=== PATIENT | male | born 1995 | race Caucasian/White ===

== ENCOUNTER 2020-12-03 17:56 | Emergency (ER) | payer OTHER ==
[~2020-12-03] VITALS: Ht 177.8 cm; Wt 63.5 kg
[2020-12-03] MEDS ORDERED: PREDNISONE 20 M20 MG PO ×3 (18:59→19:22)
[2020-12-03 19:25] VITALS: BP 130/74
== END 2020-12-03 19:25 | disposition home or self-care (01) ==
LOC: ER 17:56
DX: J02.0 Streptococcal pharyngitis (principal); Z20.822 Contact with and (suspected) exposure to COVID-19

== ENCOUNTER 2021-01-31 10:59 | Emergency (ER) | payer OTHER ==
[~2021-01-31] VITALS: Ht 177.8 cm; Wt 63.5 kg
[~2021-01-31 10:59] MED LIST: PREDNISONE 20 M20 MG PO
[2021-01-31 11:17] VITALS: BP 121/73
== END 2021-01-31 12:00 | disposition home or self-care (01) ==
LOC: ER 10:59
PROVIDERS: Emergency Medicine
DX: R05 Cough (principal); Z20.822 Contact with and (suspected) exposure to COVID-19